=== PATIENT | male | born 1970 | race Caucasian/White ===

== ENCOUNTER 2020-06-29 06:52 | Emergency (ER) | payer MEDICAID ==
[~2020-06-29] VITALS: Ht 185.4 cm; Wt 108.0 kg
[~2020-06-29 06:52] MED LIST: ACET325T14 PO; CEFT1VIA IV; CELE200C PO; CEPH-368 PO; CLIN300C9 PO; HYDR1TAB53 PO; IBUP-1223 PO; NICO-587 TD; SUMA50TA3 PO
[2020-06-29] MEDS ORDERED: SODIUM CHLORIDE FLUSH 10ML SYR IVF ONE (07:30)
[2020-06-29] MEDS ORDERED: ONDANSETRON 2MG/ML, 2ML IVPush ONE (07:30)
[2020-06-29] MEDS ORDERED: MORPHINE SULFATE 4 MG/ML, 1ML IVPush PRN (07:30)
[2020-06-29] MEDS ORDERED: SODIUM CHLORIDE 0.9% 1,000ML IVBOLUS ONE (07:30)
[2020-06-29 07:37] LABS: BASOPHILS % (AUTO) 1 % (0-1); EOSINOPHILS % (AUTO) 8 % (1-7); LYMPHOCYTES % (AUTO) 32 % (22-44); MEAN CORPUSCULAR HEMOGLOBIN 28.9 pg (27.5-34.5); MEAN CORPUSCULAR HGB CONC 33.5 g/dL (33.2-36.2); MEAN PLATELET VOLUME 7.5 fL (7.4-10.4); MONOCYTES % (AUTO) 10 % (2-9); NEUTROPHILS % (AUTO) 49 % (42-75); PLATELET COUNT 256 x10^3/uL (130-400); RED BLOOD COUNT 5.37 x10^6/uL (4.38-5.82)
[2020-06-29 07:49] LABS: ALBUMIN 3.6 g/dL (3.4-5.0); ANION GAP 8 mmol/L (5-15); CALCIUM 9.1 mg/dL (8.5-10.1); CHLORIDE 109 mmol/L (98-107); CREATININE 1.09 mg/dL (0.7-1.3)
--- NOTE | 2020-06-29 07:56 | NUR ---
Pt states pain in R mid back/flank.02/21. C/o some dysuria.
[2020-06-29 08:03] LABS: MD SCAN
[2020-06-29] MEDS ORDERED: ONDANSETRON 2MG/ML, 2ML ONE (08:14)
[2020-06-29] MEDS ORDERED: MORPHINE SULFATE 4 MG/ML, 1ML ONE (08:14)
[2020-06-29 08:58] LABS: MICROSCOPIC NOT IND
--- NOTE | 2020-06-29 09:19 | NUR ---
Pt states pain improved post morphine admin. To be dc'd soon. VS updated.
[2020-06-29 09:58] VITALS: BP 136/93
== END 2020-06-29 10:01 | disposition home or self-care (01) ==
LOC: ED 09:40
DX: M54.5 Low back pain (principal); Z88.5 Allergy status to narcotic agent; Z88.6 Allergy status to analgesic agent
CPT/HCPCS: 36415; 72110; 80048; 81003; 82040; 85025; 96361; 96374; 96375; 99284; J2270; J2405; J7030